=== PATIENT | male | born 1945 | race Caucasian/White ===

== ENCOUNTER 2024-01-01 10:17 | Day surgery (SDC) | payer OTHER ==
[2024-01-01] VITALS (11 sets, daily range): BP systolic 109–134; BP diastolic 52–68; PULSE 42–79; RESP 11–15; TEMP 97.9; O2SAT 92–100
[~2024-01-01] VITALS: Ht 177.8 cm; Wt 86.9 kg
[2024-01-01] MEDS ORDERED: HYDR-3973 PO (10:47)
[2024-01-01] MEDS ORDERED: METO-395 PO (10:47)
[2024-01-01] MEDS ORDERED: ATOR40TA PO (10:47)
[2024-01-01] MEDS ORDERED: HYDR12.55 PO (10:47)
[2024-01-01] MEDS ORDERED: EMPA25TA PO (10:47)
[2024-01-01] MEDS ORDERED: APIX5TAB3 PO (10:47)
[2024-01-01] MEDS ORDERED: LISI40TA13 PO (10:47)
[2024-01-01] MEDS ORDERED: AMLO10TA48 PO (10:47)
[2024-01-01] MEDS ORDERED: AMI200T PO (10:47)
[2024-01-01] MEDS: normal saline 1000ml 1,000 ML IV SCH (11:00)
[2024-01-01 11:17] LABS: ANION GAP 11 (8-16); BLOOD UREA NITROGEN 16 MG/DL (7-18); BUN/CREATININE RATIO 16.7 (10.0-20.0); CHLORIDE 106 MMOL/L (99-107); CREATININE 0.96 MG/DL (0.60-1.10); GLUCOSE 91 MG/DL (70-104); POTASSIUM 4.1 MMOL/L (3.5-5.1); SODIUM 143 MMOL/L (135-145); TOTAL CARBON DIOXIDE 26.3 MMOL/L (24-32); eCRCL 68 ML/MIN; eGFR 76 ML/MIN
[2024-01-01 11:22] LABS: APTT 31 SECONDS (22-32); INR 1.1 INR; PROTHROMBIN TIME 11.9 SECONDS (9.0-12.0)
[2024-01-01 11:24] LABS: BASOPHILS # (AUTO) 0.2 X10'3 (0-0.2); BASOPHILS % (AUTO) 2.7 % (0-1); EOSINOPHILS # (AUTO) 0.2 X10'3 (0-0.9); EOSINOPHILS % (AUTO) 2.4 % (0-6); HEMATOCRIT 50.9 % (42.0-52.0); HEMOGLOBIN 17.2 g/dl (14.0-17.9); LYMPHOCYTES % (AUTO) 14.4 % (21-51); MEAN CORPUSCULAR HEMOGLOBIN 32.9 PG (27.0-31.0); MEAN CORPUSCULAR HGB CONC 33.7 g/dL (33.0-36.5); MEAN CORPUSCULAR VOLUME 97.7 FL (78-98); MONOCYTES # (AUTO) 0.4 X10'3 (0-0.9); MONOCYTES % (AUTO) 6.3 % (2-12); NEUTROPHILS % (AUTO) 74.2 % (42-75); PLATELET COUNT 205 X10'3 (140-440); RED BLOOD COUNT 5.22 X10'6 (4.70-6.10); RED CELL DISTRIBUTION WIDTH 14.8 % (11.5-14.5); WHITE BLOOD COUNT 6.7 X10'3 (4.5-11.0)
[2024-01-01 12:06] LABS: CHOL/HDL RATIO 2.2 (0.00-4.99); CHOLESTEROL 161 MG/DL (0-200); HDL CHOLESTEROL 74 MG/DL (35-60); LDL CHOLESTEROL 73 MG/DL (50-100); TRIGLYCERIDES 67 MG/DL (20-135)
[2024-01-01] MEDS: MIDAZolam 1mg/ml 10ml vial IV ONE (12:29)
[2024-01-01] MEDS: fentaNYL/PF 50MCG/1 ML 2ML syringe IV ONE (12:29)
== END 2024-01-01 13:30 | disposition home or self-care (01) ==
LOC: SSTAY O 10:17
PROVIDERS: ATTEND Student in an Organized Health Care Education/Training Program
DX: I48.91 Unspecified atrial fibrillation (principal); I42.0 Dilated cardiomyopathy; I10 Essential (primary) hypertension; Z79.899 Other long term (current) drug therapy
CPT/HCPCS: 36415; 80048; 80061; 85025; 85610; 85730; 92960; 93005; J2250; J3010; J7030